=== PATIENT | male | born 1995 | race Caucasian/White ===

== ENCOUNTER → 2020-07-03 09:03 | Outpatient (CLI) | payer MEDICAID, SELFPAY ==
--- NOTE | 2020-07-03 09:09 | US_ITS ---
PROCEDURE: US ABDOMEN LIMITED CLINICAL INDICATION: ABD PAIN COMPARISON: No exams were available for comparison FINDINGS: PANCREAS: Unremarkable. No obvious mass or abnormal fluid collection. No ductal dilatation LIVER: No focal liver lesions demonstrated. Homogeneous echogenicity. No intrahepatic biliary ductal dilatation evident. There is appropriate direction of blood flow within a non dilated portal vein RIGHT KIDNEY: Unremarkable. Normal size and echogenicity. No hydronephrosis GALLBLADDER: No gallstones, gallbladder wall thickening, pericholecystic fluid, or biliary dilatation. IMPRESSION: Unremarkable limited abdominal ultrasound as detailed above disc Dictated by: Seth Rivas MD 07/03/2020 11:12 Seth Rivas MD in [facility] 07/03/2020 11:12
== END ==
PROVIDERS: PCP Nurse Practitioner; Visit Provider Nurse Practitioner
DX: R10.9 Unspecified abdominal pain (principal)
CPT/HCPCS: 76705

== ENCOUNTER → 2020-07-27 15:01 | Outpatient (CLI) | payer MEDICAID, SELFPAY ==
--- NOTE | 2020-07-27 15:12 | XR_ITS ---
PROCEDURE: XR HAND LT MIN 3V CLINICAL INDICATION: LT HAND PAIN COMPARISON: No exams were available for comparison FINDINGS: No fracture or dislocation. No lytic or blastic change. There is normal mineralization. The joint spaces are well-preserved. No significant degenerative/arthritic changes. No erosive changes evident. Other findings:None. IMPRESSION: No acute findings. Dictated by: Fang Vargas 07/27/2020 16:45 Fang Vargas in [facility] 07/27/2020 16:45
== END ==
PROVIDERS: PCP Nurse Practitioner; Visit Provider Nurse Practitioner
DX: M79.642 Pain in left hand (principal)
CPT/HCPCS: 73130

== ENCOUNTER 2024-08-15 19:13 | Emergency (ER) | payer BC, SELFPAY ==
--- NOTE | 2024-08-15 19:11 | ECG_ITS ---
APPROVED REPORT Exam: Resting ECG HR:79 bpm ECG Measurements Heart Rate [address] 136 P 53 QRSd 105 QRS 85 QT 368 T 38 QTc 403 Conclusion SINUS RHYTHM NORMAL ECG Electronically signed by : OSMAN CROW, 08/17/2024 00:06:20
[2024-08-15 19:14] VITALS: BP 150/95; PULSE 83; RESP 18; TEMP 36.9; O2SAT 99; BMI 39.8
--- NOTE | 2024-08-15 19:34 | XR_ITS ---
PROCEDURE INFORMATION: Exam: XR Chest Exam date and time: 08/15/2024 7:44 PM Age: 29 years old Clinical indication: Other: Chest pain TECHNIQUE: Imaging protocol: Radiologic exam of the chest. Views: 1 view. COMPARISON: No relevant prior studies available. FINDINGS: Lungs: Unremarkable. No consolidation. Pleural spaces: Unremarkable. No pleural effusion. No pneumothorax. Heart/Mediastinum: Unremarkable. No cardiomegaly. Bones/joints: Unremarkable. IMPRESSION: No acute findings.
[2024-08-15 19:38] LABS: Basophils # 0.1 K/mm3 (0-0.2); Basophils % 0.7 % (0.1-2.0); Eosinophils # 0.2 K/mm3 (0.0-0.4); Eosinophils % 2.5 % (0.1-12.0); Hematocrit 44.3 % (42.0-52.0); Hemoglobin 15.4 g/dL (14.1-18.0); Lymphocytes # 1.4 K/mm3 (0.7-4.5); Lymphocytes % 14.8 % (10-50); Mean Corpuscular HGB Conc 34.8 g/dL (31.8-35.4); Mean Corpuscular Hemoglobin 29.2 pg (27.0-31.2); Mean Corpuscular Volume 83.9 fl (80-94); Mean Platelet Volume 10.3 fl (7.4-10.4); Monocytes # 0.6 K/mm3 (0.1-1.0); Monocytes % 6.6 % (1.7-9.3); Nucleated Red Blood Cells # 0 10^3/uL; Nucleated Red Blood Cells % 0 %; Platelet Count 284 K/mm3 (142-424); Red Blood Count 5.28 M/mm3 (4.60-6.20); Red Cell Distribution Width 13.2 % (11.5-17.5); White Blood Count 9.4 K/mm3 (4.8-10.8)
[2024-08-15 19:50] VITALS: BP 111/92; PULSE 77; RESP 18; O2SAT 100
[2024-08-15 19:54] LABS: Alanine Aminotransferase 34 U/L (12-78); Albumin Level 4.8 g/dl (3.5-5.0); Albumin/Globulin Ratio 1.5 (1.1-1.8); Alkaline Phosphatase 88 U/L (38-126); Anion Gap 17.1 mEq/L (5-15); Aspartate Amino Transferase 48 U/L (17-59); Bilirubin,Total 0.9 mg/dl (0.2-1.3); Blood Urea Nitrogen 15 mg/dl (9-20); Calcium 9.7 mg/dl (8.4-10.2); Carbon Dioxide 26 mmol/L (22.0-30.0); Chloride 102 mmol/L (98-107); Creatinine Clearance Estimated 254 mL/min (50-200); Estimated Glomerular Filt Rate 100 ml/min (>60); GFR (African American) 121 ML/MIN (>60); Globulin 3.3 g/dL (1.3-3.2); Glucose 97 mg/dl (74-100); Potassium 4.1 mmoL/L (3.5-5.1); Sodium 141 mmol/L (136-145); Total Protein,Serum 8.1 g/dl (6.3-8.2)
--- NOTE | 2024-08-15 19:59 | ED_ITS ---
Discharge Plan Disposition Patient Disposition: Home, Self-Care Referrals Follow up/Referrals: Alexandra Portillo APRN [Primary Care Provider] - See instructions Activity Restrictions/Add. Instructions Additional Instructions/Restrictions: Recommend no more than 300 mg of caffeine at a time. Please follow-up with your PCP if you have continued new or worsening signs or symptoms. If you have any worsening signs or symptoms return to the ER as needed. Clinical Impressions Clinical Impression: Chest pain Qualifiers: Chest pain type: unspecified Qualified Code(s): R07.9 - Chest pain, unspecified Print Language Print Language: Kinyarwanda Discharge ED Provider: Mary Johns [facility] Adult HPI <MARIO Lopez - Last Filed: 08/15/24 22:15> General Chief complaint: Chest Pain Stated complaint: Chest Time Seen by Provider: 08/15/24 19:59 Mode of Arrival: Ambulatory Source of Information: Patient Description of Symptoms (Recalled from ER Triage Doc. by RN): Pt states he was at work and started to have left sided chest pain. Pt denies having a cardiac history. History of Present Illness HPI narrative: Patient presents for evaluation of left-sided chest pain. Patient does not have a known cardiac history and has a history of bipolar disorder. Patient states it began at work and he felt like his heart was racing and he was sent to the ER for evaluation. Patient relates that when he got up this morning he drinks 6 cups of coffee and a Monster energy drink totaling approximately 800 mg of caffeine. He does not normally drink that amount nor that short period of time. He denies any shortness of breath fever chills hemoptysis hematochezia melena nausea vomit diarrhea. Related Data Allergies Allergy/AdvReac Type Severity Reaction Status Date / Time No Known Allergies Allergy Verified 08/15/24 19:33 PFSH <MARIO Lopez - Last Filed: 08/15/24 22:15> PFS Disclaimer: The information contained in this section may have been updated after the patient was seen, as this information can be updated by other users. Social History (Updated 08/15/24 @ 22:15 by MARIO Lopez) Smoking Status: Current every day smoker alcohol intake: never current occupational status: employed Travel in the last 8 weeks: None Have you lived/traveled outside [place] in past 30 days?: No Contact w/someone who lives/traveled outside [place] past 30 days?: No Exposure to someone with infectious disease in past 14 days?: No Do you have a fever (greater than 100.4 F or 38 C)?: No Have you tested positive for COVID-19: No Exposed to someone with COVID-19 in past 14 days?: No Do you have a sore throat?: No Do you have a cough?: No Do you have any weakness?: No Do you have any diarrhea?: No Are you experiencing any unusual bleeding?: No Do you have any muscle aches/pain?: No Do you have any abdominal pain?: No Are you experiencing loss of taste or smell?: No <MARIO Lopez - Last Filed: 08/15/24 22:15> ROS Obtained: Yes Systems reviewed as appropriate & no additional complaints except as documented Physical Exam <MARIO Lopez - Last Filed: 08/15/24 22:15> General General appearance: alert and in no apparent distress Respiratory Respiratory exam: Present normal lung sounds bilaterally Cardiovascular Cardiovascular exam: Present regular rate Neurological Exam Neurological exam: Present alert and oriented X3 Medical Decision Making <MARIO Lopez - Last Filed: 08/15/24 22:15> Medical Records Medical records reviewed: Yes I reviewed the patient's medical records. Screening: Per USPSTF and CDC recommendations, given the prevalence of disease in our region, it is our hospital?s policy to screen for HIV and viral Hepatitis for all patients aged 18 and over and those with ongoing risk factors. Marvin Inquiry Pt receiving controlled substance: No Vital Signs: 08/15/24 19:14 08/15/24 19:50 08/15/24 21:46 Temperature 98.4 F Temperature Source Oral Pulse Rate 77 72 Pulse Rate [Right] 83 Respiratory Rate 18 18 16 Blood Pressure 111/92 H 141/111 H Blood Pressure [Right Arm] 150/95 H Blood Pressure Mean [Right Arm] 113 Blood Pressure Source Blood Pressure Source [Right Arm] Automatic Cuff Blood Pressure Position Blood Pressure Position [Right Arm] Sitting 02 Sat by Pulse Oximetry 99 100 98 Oxygen Delivery Method Room Air Room Air Room Air 08/15/24 22:09 08/15/24 22:33 Temperature 98.4 F Temperature Source Oral Pulse Rate 72 83 Pulse Rate [Right] Respiratory Rate 18 18 Blood Pressure 146/76 H 146/76 H Blood Pressure [Right Arm] Blood Pressure Mean [Right Arm] Blood Pressure Source Automatic Cuff Blood Pressure Source [Right Arm] Blood Pressure Position Sitting Blood Pressure Position [Right Arm] 02 Sat by Pulse Oximetry 98 Oxygen Delivery Method Room Air Room Air Lab Data Lab results reviewed: Yes I reviewed the patient's lab results. Lab Results 08/15/24 19:30: WBC 9.4, RBC 5.28, Hgb 15.4, Hct 44.3, MCV 83.9, MCH 29.2, MCHC 34.8, RDW 13.2, Plt Count 284, MPV 10.3, Neut % (Auto) 75.0, Lymph % (Auto) 14.8, Lyman % (Auto) 6.6, Eos % (Auto) 2.5, Baso % (Auto) 0.7, Neut # (Auto) 7.0, Lymph # (Auto) 1.4, Lyman # (Auto) 0.6, Eos # (Auto) 0.2, Baso # (Auto) 0.1, Sodium 141, Potassium 4.1, Chloride 102, Carbon Dioxide 26, Anion Gap 17.1 H, BUN 15, Creatinine 0.90, Estimated Creat Clear 254, Estimated GFR 100, Est GFR ( Amer) 121, Glucose 97, Calcium 9.7, Total Bilirubin 0.9, AST 48, ALT 34, Alkaline Phosphatase 88, Troponin I < 0.01, Total Protein 8.1, Albumin 4.8, Globulin 3.3 H, Albumin/Globulin Ratio 1.5 08/15/24 21:38: Troponin I < 0.01 08/15/24 19:30 08/15/24 19:30 Orders (Tests/Meds): ED MEDICATIONS Discontinued Medications Generic Name Dose Route Start Last Admin Trade Name Freq PRN Reason Stop Dose Admin Diazepam 5 mg 08/15/24 20:14 08/15/24 21:15 Diazepam 5mg Tablet PO 08/15/24 20:15 Not Given ONCE ONE ORDERS Category Date Time Status XR chest portable Stat Exams 08/15/24 19:34 Completed Complete Blood Count Auto Diff Stat Lab 08/15/24 19:30 Completed Comprehensive Metabolic Panel Stat Lab 08/15/24 19:30 Completed Troponin I Q3H Lab 08/15/24 21:38 Completed Troponin I Stat Lab 08/15/24 19:30 Completed HEART Score History (anamnesis): Slightly suspicious ECG: Normal Age: <45 years Risk factors: 1-2 risk factors Troponin: </= normal limit HEART Score: 1 Medical Decision Narrative: In summary patient is a 29-year-old male who presents to the emergency department for evaluation of chest pain. Patient is hemodynamically stable with a blood pressure of 150/95 heart rate 83 normal sinus rhythm bedside monitor breathing 18 times a minute taken out of percent room air upon arrival, febrile 98.4. Physical exam is remarkable for no reproducible chest pain on palpation clear breath sounds with no increased work of breathing or adventitious sounds heart sounds S1-S2 regular rate and rhythm without murmurs gallops or thrills. No peripheral edema noted.. Differential diagnosis includes ACS versus caffeine stimulation versus anxiety etc. Initial workup will be conducted with hematologic labs twelve-lead EKG.. 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 Initial workup reviewed by me and his hematologic labs are nonactionable with normal white count no neutrophilic shift and undetectable first troponin. Given his lack of cardiovascular history and risk factors and a heart score of 1 a 2-hour troponin was ordered. It also was undetectable. Upon reevaluation patient reports that all of his symptoms have abated.. Given this patient is appropriate for discharge with follow-up with his PCP for any continued new or worsening signs or symptoms and recommendations to decrease his caffeine intake especially over 300 mg at 1 time. Patient verbalized understanding and agreement. <Mary Johns, DO - Last Filed: 08/16/24 00:46> Vital Signs: 08/15/24 19:14 08/15/24 19:50 08/15/24 21:46 Temperature 98.4 F Temperature Source Oral Pulse Rate 77 72 Pulse Rate [Right] 83 Respiratory Rate 18 18 16 Blood Pressure 111/92 H 141/111 H Blood Pressure [Right Arm] 150/95 H Blood Pressure Mean [Right Arm] 113 Blood Pressure Source Blood Pressure Source [Right Arm] Automatic Cuff Blood Pressure Position Blood Pressure Position [Right Arm] Sitting 02 Sat by Pulse Oximetry 99 100 98 Oxygen Delivery Method Room Air Room Air Room Air 08/15/24 22:09 08/15/24 22:33 Temperature 98.4 F Temperature Source Oral Pulse Rate 72 83 Pulse Rate [Right] Respiratory Rate 18 18 Blood Pressure 146/76 H 146/76 H Blood Pressure [Right Arm] Blood Pressure Mean [Right Arm] Blood Pressure Source Automatic Cuff Blood Pressure Source [Right Arm] Blood Pressure Position Sitting Blood Pressure Position [Right Arm] 02 Sat by Pulse Oximetry 98 Oxygen Delivery Method Room Air Room Air Lab Data Lab Results 08/15/24 19:30: WBC 9.4, RBC 5.28, Hgb 15.4, Hct 44.3, MCV 83.9, MCH 29.2, MCHC 34.8, RDW 13.2, Plt Count 284, MPV 10.3, Neut % (Auto) 75.0, Lymph % (Auto) 14.8, Lyman % (Auto) 6.6, Eos % (Auto) 2.5, Baso % (Auto) 0.7, Neut # (Auto) 7.0, Lymph # (Auto) 1.4, Lyman # (Auto) 0.6, Eos # (Auto) 0.2, Baso # (Auto) 0.1, Sodium 141, Potassium 4.1, Chloride 102, Carbon Dioxide 26, Anion Gap 17.1 H, BUN 15, Creatinine 0.90, Estimated Creat Clear 254, Estimated GFR 100, Est GFR ( Amer) 121, Glucose 97, Calcium 9.7, Total Bilirubin 0.9, AST 48, ALT 34, Alkaline Phosphatase 88, Troponin I < 0.01, Total Protein 8.1, Albumin 4.8, Globulin 3.3 H, Albumin/Globulin Ratio 1.5 08/15/24 21:38: Troponin I < 0.01 Orders (Tests/Meds): ED MEDICATIONS Discontinued Medications Generic Name Dose Route Start Last Admin Trade Name Freq PRN Reason Stop Dose Admin Diazepam 5 mg 08/15/24 20:14 08/15/24 21:15 Diazepam 5mg Tablet PO 08/15/24 20:15 Not Given ONCE ONE ORDERS Category Date Time Status XR chest portable Stat Exams 08/15/24 19:34 Completed Complete Blood Count Auto Diff Stat Lab 08/15/24 19:30 Completed Comprehensive Metabolic Panel Stat Lab 08/15/24 19:30 Completed Troponin I Q3H Lab 08/15/24 21:38 Completed Troponin I Stat Lab 08/15/24 19:30 Completed ECG Data Tracing #1: I reviewed this ECG and interpreted as documented below: Normal sinus rhythm with a ventricular of [address] changes concerning for ischemia. ECG initial impression date: 08/16/24 ECG initial impression time: 19:14 HEART Score HEART Score: 1 Medical Decision Narrative: In summary patient is a 29-year-old male who presents to the emergency department for evaluation of chest pain. Patient is hemodynamically stable with a blood pressure of 150/95 heart rate 83 normal sinus rhythm bedside monitor breathing 18 times a minute taken out of percent room air upon arrival, febrile 98.4. Physical exam is remarkable for no reproducible chest pain on palpation clear breath sounds with no increased work of breathing or adventitious sounds heart sounds S1-S2 regular rate and rhythm without murmurs gallops or thrills. No peripheral edema noted.. Differential diagnosis includes ACS versus caffeine stimulation versus anxiety etc. Initial workup will be conducted with hematologic labs twelve-lead EKG.. 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 Initial workup reviewed by me and his hematologic labs are nonactionable with normal white count no neutrophilic shift and undetectable first troponin. Given his lack of cardiovascular history and risk factors and a heart score of 1 a 2-hour troponin was ordered. It also was undetectable. Upon reevaluation patient reports that all of his symptoms have abated.. Given this patient is appropriate for discharge with follow-up with his PCP for any continued new or worsening signs or symptoms and recommendations to decrease his caffeine intake especially over 300 mg at 1 time. Patient verbalized understanding and agreement. DO Andreas: I was consulted by the CAROLYN, and we discussed the complexity of the problems being addressed. I approved the treatment and management plan for this patient's care in the emergency department, thus performing a substantive portion of the medical decision making. Mary Johns DO Critical Care <MARIO Lopez - Last Filed: 08/15/24 22:15> Critical Care Time Critical Care Time: No
[2024-08-15 20:19] LABS: Troponin I < 0.01 ng/ml (0.00-0.034)
--- NOTE | 2024-08-15 21:14 | PC.NURSE ---
Pt declines Diazepam tablet at this time.
[2024-08-15 21:46] VITALS: BP 141/111; PULSE 72; RESP 16; O2SAT 98
[2024-08-15 22:09] VITALS: BP 146/76; PULSE 72; RESP 18; O2SAT 98
[2024-08-15 22:20] LABS: Troponin I < 0.01 ng/ml (0.00-0.034)
[2024-08-15 22:33] VITALS: BP 146/76; PULSE 83; RESP 18; TEMP 36.9; O2SAT 98
== END 2024-08-15 22:34 | disposition home or self-care (01) ==
PROVIDERS: Emergency Provider Emergency Medicine; PCP Nurse Practitioner
DX: R07.89 Other chest pain (principal)
CPT/HCPCS: 71045; 80053; 84484; 85025; 93005; 99284